=== PATIENT | male | born 1960 | race Caucasian/White ===

== ENCOUNTER 2018-04-27 10:52 | Outpatient (CLI) | payer BC ==
--- NOTE | 2018-04-27 16:37 | CT ---
CT ABDOMEN AND PELVIS WITHOUT CONTRAST: DATE: 04/27/2018. FINDINGS: Spiral CT of the abdomen and pelvis was done using no oral or IV contrast for evaluation of rectal bl eeding. The lung bases are clear. The liver, spleen, pancreas, adrenal glands, kidneys, and abdominal aorta appear normal within the limitations of a noncontrast study. The wall of the mid transverse colon through portions of the upper left colon seems slightly thick. There is a little bit of inflammatory change around the proximal left colon just below the splenic fl exure. The findings suggest the possibility of at least colitis. I did not see any diverticula here , though there are sigmoid diverticula. No streaking is seen around them. No free air or free fluid was seen. There are no dilated loops of bowel. CT of the pelvis shows no pelvic masses, fluid collections, or inflammatory changes in that region. IMPRESSION: 1. Longer segment of colonic thickening from mid transverse through the upper half of the left colon . Colitis is suspected. 2. Sigmoid diverticulosis. POS: HOME
== END 2018-04-27 10:53 | disposition home or self-care (01) ==
LOC: BURCT 10:52
PROVIDERS: ATTEND Family Medicine
DX: K62.5 Hemorrhage of anus and rectum (principal); R10.9 Unspecified abdominal pain; K57.30 Diverticulosis of large intestine without perforation or abscess without bleeding; K63.89 Other specified diseases of intestine
CPT/HCPCS: 74176